=== PATIENT | female | born 1980 | race Caucasian/White ===

== ENCOUNTER 2016-08-02 11:33 | Emergency (ER) | payer OTHER ==
[~2016-08-02] VITALS: Wt 90.6 kg
[~2016-08-02 11:33] MED LIST: ASPI-465; CHOLESTEROL MED; GLIP-95; METF-480; PREN1TAB49 PO; SAXA2.5T; SMV40T
[2016-08-02 13:33] LABS: ALBUMIN 4.4 g/dl (3.3-4.9)
[2016-08-02 13:36] LABS: ALBUMIN/GLOBULIN RATIO 1.57; BILIRUBIN,INDIRECT 0.2 mg/dl (0-1.1); BILIRUBIN,TOTAL 0.2 mg/dl (0.2-1.3); CALCIUM 9.8 mg/dl (8.4-10.2); CREATININE 0.5 mg/dl (0.44-1.00); TOTAL PROTEIN 7.2 g/dl (6.1-8.1)
[2016-08-02 13:58] LABS: BASOPHILS % 0.5 % (0.0-2.0); EOSINOPHILS # 0.1 10^3/ul (0.0-0.5); EOSINOPHILS % 1.3 % (0.0-7.0); LYMPHOCYTES # 3.1 10^3/ul (0.8-2.9); LYMPHOCYTES % 28.6 % (15.0-51.0); MEAN CORPUSCULAR HEMOGLOBIN 30.6 pg (29.0-33.0); MEAN CORPUSCULAR HGB CONC 34.2 g/dl (32.0-37.0); MEAN CORPUSCULAR VOLUME 89.6 fl (82.0-101.0); MEAN PLATELET VOLUME 9.2 fl (7.4-10.4); MONOCYTE # 0.5 10^3/ul (0.3-0.9); MONOCYTES % 4.6 % (0.0-11.0); NEUTROPHIL # 7.1 10^3/ul (1.6-7.5); PLATELET COUNT 322 10^3/UL (140-440); RED BLOOD COUNT 4.91 10^6/ul (4.20-5.40); RED CELL DISTRIBUTION WIDTH 12.6 % (11.5-14.5); UNCORRECTED WBC 10.9 10^3/ul (4.8-10.8); WHITE BLOOD COUNT 10.9 10^3/ul (4.8-10.8)
[2016-08-02 14:04] LABS: CONDITION 1
--- NOTE | 2016-08-02 14:08 | RADRPT ---
PROCEDURE: CT abdomen and pelvis without contrast. CLINICAL INDICATION: Abdominal pain TECHNIQUE: Continues 2.5 mm axial images were obtained from the domes of the diaphragms to the inf erior pubic rami. No oral or intravenous contrast was administered. The calculated dose length prod uct (DLP) = 955.64 mGy-cm. Exam CTDlvol = 15.27 mGy. One or more of the following dose reduction techniques were used: Automated exposure control, adjustment of the mA and or KV according to patien t size, or use of iterative reconstruction technique. One or more of the following dose reduction t echniques were used: Automated exposure control, adjustment of the mA and or KV according to patient size, or use of iterative reconstruction technique. COMPARISON: None. FINDINGS: The lung bases are clear. No pleural pericardial fluid is seen. Gallbladder is surgically absent. There is no biliary duct dilatation. Liver, pancreas, spleen, ad renals, and kidneys are within normal limits. There is no evidence renal calculi or obstructive uro deja. Aorta is normal in caliber. There is punctate aortic calcification which is advanced for th e patient's age. No pathologically enlarged mesenteric lymph nodes are seen. The stomach and small bowel loops are within normal limits. There is no small bowel dilatation or obstruction. No free fluid, free air, abscess is noted in the upper abdomen CT pelvis: Images through the pelvis demonstrate no free fluid, free air, abscess. There is anteri or pelvic wall incision scar presumably from previous . Mild thickening is noted of the an terior bladder wall which may represent cystitis. Recommend correlation with urinalysis. Uterus an d adnexa are grossly unremarkable. There is small follicles in both ovaries. Evaluation of the col on demonstrates no diverticulosis, diverticulitis or acute colitis. The appendix is surgically abse nt. Terminal ileum is unremarkable. There are no pathologically enlarged iliac chain lymph nodes. No destructive bony lesions are seen. IMPRESSION: 1. Mild thickening of the bladder wall which may suggest cystitis. Recommend correlation with urin alysis. 2. No free fluid, free air, abscess. 3. Status post cholecystectomy and appendectomy 4. Mild atherosclerotic aortic calcification which is advanced for the patient's age RPTAT: HH .Karlos Haines MD, MD Date Time Electronically viewed and signed by .Karlos Haines MD, MD on 08/02/2016 14:07 .W/
--- NOTE | 2016-08-02 16:25 | ERD ---
ER Documentation Chief Complaint Date/Time DATE: 08/02/16 TIME: 16:18 Chief Complaint hemmrhoids intermittent bleeding onset a few months ago. HPI This is a 36-year-old female who presents to the ER stating that she has hemorrhoids and that she has had rectal bleeding for the last 3 months. Patient states that she has a lot of rectal pain and that she has bright red blood per rectum every single time she has a bowel movement. Patient states that rectal bleeding has gotten significantly worse. She denies any fevers or chills. Patient has been to multiple ERs and has been given Anusol and other creams however they have not worked. Patient has a past medical history of diabetes. She denies any nausea or vomiting. Patient denies any diarrhea. She denies any recent travel. ROS 12 point review of systems was done, all negative except per HPI. Medications Home Meds Reported Medications Vits W-Ca,Fe,Fa(<1MG) () 1 Tab Tablet, 1 TAB PO DAILY 07/11/12 Saxagliptin Hcl* (Onglyza*) 2.5 Mg Tablet 09/15/10 Simvastatin (Simvastatin) 40 Mg Tablet 09/15/10 [Cholesterol Med] No Conflict Check 09/15/10 Aspirin (Adult Low Dose Aspirin) 81 Mg Tablet. 09/15/10 Glipizide* (Glipizide*) 10 Mg Tablet 09/15/10 Metformin* (Glucophage*) 850 Mg Tablet 09/15/10 Allergies Allergies: Coded Allergies: No Known Allergies (Verified Allergy, Mild, 09/15/10) PMhx/Soc History of Surgery: Yes (csect x4, gallbladder removed, appendectomy) Anesthesia Reaction: No Hx Neurological Disorder: No Hx Respiratory Disorders: No Hx Cardiac Disorders: Yes (high cholesterol) Hx Psychiatric Problems: No Hx Miscellaneous Medical Probl: Yes (dm) Hx Alcohol Use: No Hx Substance Use: No Hx Tobacco Use: Yes Smoking Status: Unknown if ever smoked Physical Exam Vitals Vital Signs Date Time Temp Pulse Resp B/P Pulse Ox O2 Delivery O2 Flow Rate FiO2 08/02/16 11:36 98.4 102 21 153/85 100 Physical Exam GENERAL: The patient is well developed and appropriate for usual state of health , in no apparent distress. HEENT: Atraumatic. Conjunctivae are pink. Pupils equal, round, and reactive to light. Extraocular muscles are grossly intact. Bilateral tympanic membranes are clear with no evidence of erythema, effusion or dulling of the light reflex. The oropharynx is clear with no erythema or exudates. NECK: C-spine is soft and supple. There is no cervical lymphadenopathy. CHEST: Clear to auscultation bilaterally. There are no rales, wheezes or rhonchi. HEART: Regular rate and rhythm. No murmurs, clicks, rubs or gallops. ABDOMEN: Soft, nontender and nondistended. Good bowel sounds. No rebound or guarding. No gross peritonitis. No gross organomegaly or masses. No Kim sign or McBurney point tenderness. BACK: No midline or flank tenderness. RECTAL: there are external hemorrhoids seen NEURO: Alert and oriented. Result Diagram: 08/02/16 1306 08/02/16 1306 Results 24 hrs Laboratory Tests Test 08/02/16 13:06 08/02/16 13:15 Alanine Aminotransferase (ALT/SGPT) 32IU/L Albumin 4.4g/dl Albumin/Globulin Ratio 1.57 Alkaline Phosphatase 82IU/L Anion Gap 17 Aspartate Amino Transf (AST/SGOT) 26IU/L Basophils # 0.010^3/ul Basophils % 0.5% Blood Urea Nitrogen 9mg/dl Calcium Level 9.8mg/dl Carbon Dioxide Level 27mmol/L Chloride Level 100mmol/L Creatinine 0.50mg/dl Direct Bilirubin 0.00mg/dl Eosinophils # 0.110^3/ul Eosinophils % 1.3% Globulin 2.80g/dl Glucose Level 277mg/dl Hematocrit 44.0% Hemoglobin 15.0g/dl Indirect Bilirubin 0.2mg/dl Lipase 119U/L Lymphocytes # 3.110^3/ul Lymphocytes % 28.6% Mean Corpuscular Hemoglobin 30.6pg Mean Corpuscular Hemoglobin Concent 34.2g/dl Mean Corpuscular Volume 89.6fl Mean Platelet Volume 9.2fl Monocytes # 0.510^3/ul Monocytes % 4.6% Neutrophils # 7.110^3/ul Neutrophils % 65.0% Nucleated Red Blood Cells # 0.010^3/ul Nucleated Red Blood Cells % 0.0/100WBC Platelet Count 12111^3/UL Potassium Level 4.0mmol/L Red Blood Count 4.9110^6/ul Red Cell Distribution Width 12.6% Sodium Level 140mmol/L Total Bilirubin 0.2mg/dl Total Protein 7.2g/dl White Blood Count 10.910^3/ul Stool Occult Blood NEGATIVE Procedures/MDM This is a 36-year-old female that presents to the ER with rectal bleeding. Patient did have evidence of hemorrhoids on physical exam. Patient is hemodynamically stable with no evidence of anemia at this time. Fecal occult blood was negative. Patient urgently needs to follow-up with a senior scrum master to get a colonoscopy done as soon as possible. Patient stated that she was not able to see a primary care doctor however I called primary care doctor's office and patient is a regular patient there who has been seeing a doctor regularly. Her next appointment is August 11 at 10:40 AM. I instructed patient to ask her primary care doctor for a referral to a senior scrum master. Patient understands recently medical decision making. She is to return to ER sooner if symptoms worsen. Departure Diagnosis: Primary Impression: Rectal bleeding Condition: Stable Patient Instructions: Rectal Bleed, Stable Additional Instructions: Llame al doctor CARINE y will demi JEREMIAS PARA DENTRO DE 1-2 WHITE.Dgale a la secretaria que nosotros le instruimos hacer esta jeremias.Avise o llame si nguyen condicin se empeora antes de la jeremias. Regresa aqui si peor o no mejor. NECESITAS XAVIER A UN GASTROENTEROLOGO URGENTEMENTE GREG [place] Aug 02, 2016 16:25
[2016-08-02] MEDS ORDERED: HYDR-906 PO (16:29)
== END 2016-08-02 16:26 | disposition home or self-care (01) ==
LOC: FTE 11:33
DX: K62.5 Hemorrhage of anus and rectum (principal); E11.9 Type 2 diabetes mellitus without complications; Z79.84 Long term (current) use of oral hypoglycemic drugs; Z79.82 Long term (current) use of aspirin; Z87.891 Personal history of nicotine dependence
CPT/HCPCS: 74176; 80053; 82270; 83690; 85025; Z7502